=== PATIENT | female | born 1970 | race Caucasian/White ===

== ENCOUNTER 2016-12-04 09:13 | Emergency (ER) | payer OTHER ==
[~2016-12-04] VITALS: Wt 68.0 kg
[~2016-12-04 09:13] MED LIST: AMOXICILLIN500 M3 PO; AUGMENTIN 875875 MG PO; BACTRIM DS 8001 TA1 PO; CLINDAMYCIN HC300 MG PO; DAYPRO600 M1 PO; FLEXERIL5 MG PO; HYDROCODONE BIT1 T11 PO; HYDRODIURIL25 MG PO; LEVAQUIN500 M2 PO; MOTRIN800 MG PO; NORCO 5-325 TA1 EACH PO; OMEPRAZOLE20 MG PO; ONDANSETRON H2 MG/ML IV; PENICILLIN-VK500 MG PO; PROMETHAZINE IV; PROTONIX TR40 M1 PO; PYRIDIUM200 MG PO; Phenergan25 MG PO; TESSALON PERLE200 MG PO; TRAMADOL HCL50 MG PO; VIBRAMYCIN100 MG PO; VICODIN 500 MG-1 TAB PO; Zofran4 MG PO
[2016-12-04 09:20] VITALS: BP 133/86
[2016-12-04] MEDS ORDERED: NAPROSYN500 MG PO (09:26)
[2016-12-04] MEDS ORDERED: 'PARAFON FORTE500 M1 PO (09:26)
== END 2016-12-04 11:19 | disposition home or self-care (01) ==
LOC: ED 09:13
DX: S80.811A Abrasion, right lower leg, initial encounter (principal); R03.0 Elevated blood-pressure reading, without diagnosis of hypertension; Z88.7 Allergy status to serum and vaccine; V49.9XXA Car occupant (driver) (passenger) injured in unspecified traffic accident, initial encounter; Y93.89 Activity, other specified; Y92.413 State road as the place of occurrence of the external cause; Y99.9 Unspecified external cause status